=== PATIENT | male | born 1950 | race Caucasian/White ===

== ENCOUNTER 2021-11-18 10:15 | Observation (INO) | payer MEDICARE ==
[2021-11-18] VITALS (18 sets, daily range): BP systolic 125–172; BP diastolic 48–92
[~2021-11-18] VITALS: Ht 162.6 cm; Wt 52.0 kg
[~2021-11-18 10:15] MED LIST: AMPICILLIN500 MG PO; CIPROFLOXACN250 MG PO; CIPROFLOXACN500 MG PO; CLARITHROMYC500 M2 PO; DOXYCYCL HYC100 MG PO; EQ OMEPRAZOLE20 MG PO; NAPROSYN375 MG PO; NAPROXEN500 MG PO; OMEPRAZOLE +2 MG/ML PO; PAIN RELIEF; PANTOPRAZOLE SO40 MG PO; POT CHLORIDE20 % PO; PRILOSEC40 MG PO; PROMETHAZINE25 MG PO; PROTONIX PO; ZOFRAN ODT8 MG PO
[2021-11-18] MEDS ORDERED: ZOCOR10 MG PO (10:37)
[2021-11-18 10:48] LABS: HEMATOCRIT 29.7 % (39.0-50.0); HEMOGLOBIN 7.9 g/dl (14.0-18.0); IMMATURE GRANULOCYTES 4.5 % (0.0-5.0); MEAN CORPUSCULAR HGB 18.2 pG CALC (26.0-32.0); MEAN CORPUSCULAR HGB CONC 26.6 g/dL CAL (32.0-36.0); NEUT# 12.92 thou/uL (1.82-7.42); RED BLOOD COUNT 4.33 mill/uL (4.70-6.10); RED CELL DISTRI WIDTH 18.8 % (11.5-15.5)
[2021-11-18 10:49] LABS: MEAN CELL VOLUME 68.6 fL CALC (80.0-100.0)
[2021-11-18 11:12] LABS: ALKALINE PHOSPHATASE 93 u/l (38-126); ANION GAP 17 (6-22 (CALC)); BILIRUBIN, TOTAL 0.5 mg/dL (0.0-1.4); BUN 15 mg/dL (8-23); BUN/CREATININE RATIO 18 (12-20 (CALC)); CARBON DIOXIDE 22 mmol/l (22-30); CHLORIDE 98 mmol/l (95-108); CREATININE 0.8 mg/dL (0.7-1.3); GFR FOR AFR.AMER. > 60 ML/MIN (>=60 (CALC)); GFR OTHER RACES > 60 ML/MIN (>=60 (CALC)); POTASSIUM 3.7 mmol/l (3.5-5.1); SGOT/AST 26 u/l (19-48); SODIUM 133 mmol/l (137-146); TOTAL PROTEIN 7.1 g/dL (6.3-8.2)
[2021-11-19] VITALS (15 sets, daily range): BP systolic 104–170; BP diastolic 38–74
[2021-11-19 05:57] LABS: MEAN CELL VOLUME 68.5 fL CALC (80.0-100.0); MEAN CORPUSCULAR HGB 18.5 pG CALC (26.0-32.0); RED BLOOD COUNT 3.3 mill/uL (4.70-6.10); RED CELL DISTRI WIDTH 18.6 % (11.5-15.5)
[2021-11-19 06:02] LABS: HEMATOCRIT 22.6 % (39.0-50.0); HEMOGLOBIN 6.1 g/dl (14.0-18.0)
[2021-11-19 06:07] LABS: ALKALINE PHOSPHATASE 70 u/l (38-126); ANION GAP 14 (6-22 (CALC)); BILIRUBIN, TOTAL 0.3 mg/dL (0.0-1.4); BUN 21 mg/dL (8-23); BUN/CREATININE RATIO 31 (12-20 (CALC)); CARBON DIOXIDE 21 mmol/l (22-30); CHLORIDE 105 mmol/l (95-108); CREATININE 0.7 mg/dL (0.7-1.3); GFR FOR AFR.AMER. > 60 ML/MIN (>=60 (CALC)); GFR OTHER RACES > 60 ML/MIN (>=60 (CALC)); MAGNESIUM 2.2 mg/dL (1.6-2.3); POTASSIUM 3.6 mmol/l (3.5-5.1); SGOT/AST 23 u/l (19-48); SODIUM 136 mmol/l (137-146); TOTAL PROTEIN 5.7 g/dL (6.3-8.2)
[2021-11-19 06:13] LABS: ALBUMIN 3.1 g/dL (3.2-5.0)
[2021-11-19] MEDS ORDERED: TYLENOL 8 HOUR650 MG PO (09:56)
[2021-11-19] MEDS ORDERED: ERYTHROMYCI3 OU (09:57)
[2021-11-20 04:25] VITALS: BP 166/73
[2021-11-20 05:19] LABS: HEMATOCRIT 28.1 % (39.0-50.0); MEAN CELL VOLUME 72.2 fL CALC (80.0-100.0); MEAN CORPUSCULAR HGB 21.3 pG CALC (26.0-32.0); MEAN CORPUSCULAR HGB CONC 29.5 g/dL CAL (32.0-36.0); RED BLOOD COUNT 3.89 mill/uL (4.70-6.10); RED CELL DISTRI WIDTH 21.4 % (11.5-15.5)
[2021-11-20 05:23] LABS: HEMOGLOBIN 8.3 g/dl (14.0-18.0)
[2021-11-20 05:44] LABS: ANION GAP 14 (6-22 (CALC)); BUN 7 mg/dL (8-23); BUN/CREATININE RATIO 11 (12-20 (CALC)); CARBON DIOXIDE 19 mmol/l (22-30); CHLORIDE 105 mmol/l (95-108); CREATININE 0.7 mg/dL (0.7-1.3); GFR FOR AFR.AMER. > 60 ML/MIN (>=60 (CALC)); GFR OTHER RACES > 60 ML/MIN (>=60 (CALC)); MAGNESIUM 2.2 mg/dL (1.6-2.3); POTASSIUM 3.4 mmol/l (3.5-5.1); SODIUM 135 mmol/l (137-146)
[2021-11-20 06:35] VITALS: BP 118/87
[2021-11-20 15:49] LABS: URINE BILIRUBIN - DIPSTICK NEGATIVE (NEGATIVE); URINE BLOOD DIPSTICK SMALL (NEGATIVE); URINE CLARITY CLEAR; URINE COLOR YELLOW; URINE GLUCOSE - DIPSTICK NEGATIVE (NEGATIVE); URINE KETONE >=80 mg/dL (NEGATIVE); URINE LEUK ESTERASE NEGATIVE (Negative); URINE NITRITE - DIPSTICK NEGATIVE (Negative); URINE PH 6.5 (4.5-8.0); URINE PROTEIN - DIPSTICK NEGATIVE (NEG-TRACE); URINE SPECIFIC GRAVITY 1.025; URINE UROBILINOGEN - DIPSTICK 0.2 E.U./dL (0.2)
[2021-11-20 16:04] LABS: URINE WBC 0-2 WBC/hpf (0-5)
[2021-11-20 16:21] VITALS: BP 152/75
[2021-11-20 19:12] VITALS: BP 151/76
[2021-11-21 03:30] VITALS: BP 144/53
[2021-11-21 04:00] VITALS: BP 144/53
[2021-11-21 05:57] LABS: HEMATOCRIT 29.3 % (39.0-50.0); HEMOGLOBIN 8.6 g/dl (14.0-18.0); MEAN CELL VOLUME 73.1 fL CALC (80.0-100.0); MEAN CORPUSCULAR HGB 21.4 pG CALC (26.0-32.0); MEAN CORPUSCULAR HGB CONC 29.4 g/dL CAL (32.0-36.0); RED BLOOD COUNT 4.01 mill/uL (4.70-6.10); RED CELL DISTRI WIDTH 22.1 % (11.5-15.5)
[2021-11-21 06:11] LABS: ANION GAP 18 (6-22 (CALC)); BUN 5 mg/dL (8-23); BUN/CREATININE RATIO 8 (12-20 (CALC)); CARBON DIOXIDE 16 mmol/l (22-30); CHLORIDE 104 mmol/l (95-108); CREATININE 0.6 mg/dL (0.7-1.3); GFR FOR AFR.AMER. > 60 ML/MIN (>=60 (CALC)); GFR OTHER RACES > 60 ML/MIN (>=60 (CALC)); MAGNESIUM 2.2 mg/dL (1.6-2.3); POTASSIUM 3.9 mmol/l (3.5-5.1); SODIUM 134 mmol/l (137-146)
[2021-11-21 07:31] VITALS: BP 181/81
[2021-11-21 11:20] VITALS: BP 138/72
[2021-11-21] MEDS ORDERED: EQ OMEPRAZOLE20 MG PO (12:47)
[2021-11-21] MEDS ORDERED: AMOX/K CLAV875 M1 PO (12:47)
== END 2021-11-21 14:37 | disposition home health service (06) ==
LOC: ED 10:15 → ED-I 13:00 → ED 13:14 → MS2 13:15
PROVIDERS: Family Medicine; ADMIT Internal Medicine; ATTEND Internal Medicine
PROC: 30233N1 Transfusion of Nonautologous Red Blood Cells into Peripheral Vein, Percutaneous Approach (ICD-10-PCS; principal; 2021-11-19)
PROC: 30233N1 Transfusion of Nonautologous Red Blood Cells into Peripheral Vein, Percutaneous Approach (ICD-10-PCS; 2021-11-19)
DX: J18.9 Pneumonia, unspecified organism (principal); D62 Acute posthemorrhagic anemia; R13.10 Dysphagia, unspecified; K22.5 Diverticulum of esophagus, acquired; I69.351 Hemiplegia and hemiparesis following cerebral infarction affecting right dominant side; R19.5 Other fecal abnormalities; G93.40 Encephalopathy, unspecified; K21.9 Gastro-esophageal reflux disease without esophagitis; F17.210 Nicotine dependence, cigarettes, uncomplicated; Z99.3 Dependence on wheelchair; Z20.822 Contact with and (suspected) exposure to COVID-19
CPT/HCPCS: G0378; J1610; J1756; P9016; S0164

== ENCOUNTER 2022-01-07 19:56 | Inpatient (IN) | payer MEDICARE ==
[~2022-01-07] VITALS: Ht 162.6 cm; Wt 51.0 kg
[2022-01-07] VITALS (11 sets, daily range): BP systolic 125–167; BP diastolic 69–91
[~2022-01-07 19:56] MED LIST changes: +AMOX/K CLAV875 M1 PO; +ERYTHROMYCI3 OU; +TYLENOL 8 HOUR650 MG PO; +ZOCOR10 MG PO
[2022-01-07] MEDS ORDERED: FOLIC ACID1 MG PO (20:48)
[2022-01-07] MEDS ORDERED: FERROUS SULF325 M3 PO (20:48)
[2022-01-07] MEDS ORDERED: B121000 MC1 (20:49)
[2022-01-07] MEDS ORDERED: VALGANCICLOVIR450 MG VT (20:50)
[2022-01-07 21:19] LABS: IMMATURE GRANULOCYTES 0.5 % (0.0-5.0); MEAN CORPUSCULAR HGB 24.8 pG CALC (26.0-32.0); MEAN CORPUSCULAR HGB CONC 31.9 g/dL CAL (32.0-36.0); NEUT# 7.35 thou/uL (1.82-7.42); RED BLOOD COUNT 5.49 mill/uL (4.70-6.10)
[2022-01-07 21:22] LABS: HEMATOCRIT 42.6 % (39.0-50.0); HEMOGLOBIN 13.6 g/dl (14.0-18.0); MEAN CELL VOLUME 77.6 fL CALC (80.0-100.0)
[2022-01-07 21:26] LABS: ALKALINE PHOSPHATASE 89 u/l (38-126); BUN 17 mg/dL (8-23); BUN/CREATININE RATIO 18 (12-20 (CALC)); CHLORIDE 98 mmol/l (95-108); CREATININE 0.9 mg/dL (0.7-1.3); GFR FOR AFR.AMER. > 60 ML/MIN (>=60 (CALC)); GFR OTHER RACES > 60 ML/MIN (>=60 (CALC)); POTASSIUM 3.7 mmol/l (3.5-5.1); SODIUM 137 mmol/l (137-146)
[2022-01-07 21:27] LABS: ALBUMIN 4.4 g/dL (3.2-5.0); ANION GAP 17 (6-22 (CALC)); CARBON DIOXIDE 26 mmol/l (22-30); SGOT/AST 59 u/l (19-48); TOTAL PROTEIN 7.7 g/dL (6.3-8.2)
[2022-01-08] VITALS (7 sets, daily range): BP systolic 128–157; BP diastolic 54–78
[2022-01-09 03:20] VITALS: BP 152/64
[2022-01-09 05:13] VITALS: BP 141/56
[2022-01-09 06:03] LABS: ANION GAP 12 (6-22 (CALC)); BUN 13 mg/dL (8-23); BUN/CREATININE RATIO 17 (12-20 (CALC)); CARBON DIOXIDE 27 mmol/l (22-30); CHLORIDE 102 mmol/l (95-108); CREATININE 0.8 mg/dL (0.7-1.3); GFR FOR AFR.AMER. > 60 ML/MIN (>=60 (CALC)); GFR OTHER RACES > 60 ML/MIN (>=60 (CALC)); MAGNESIUM 2.2 mg/dL (1.6-2.3); POTASSIUM 3.5 mmol/l (3.5-5.1); SODIUM 138 mmol/l (137-146)
[2022-01-09 06:07] LABS: HEMATOCRIT 39.7 % (39.0-50.0); HEMOGLOBIN 12.5 g/dl (14.0-18.0); IMMATURE GRANULOCYTES 0.4 % (0.0-5.0); MEAN CELL VOLUME 78.8 fL CALC (80.0-100.0); MEAN CORPUSCULAR HGB 24.8 pG CALC (26.0-32.0); MEAN CORPUSCULAR HGB CONC 31.5 g/dL CAL (32.0-36.0); NEUT# 7.88 thou/uL (1.82-7.42); RED BLOOD COUNT 5.04 mill/uL (4.70-6.10); RED CELL DISTRI WIDTH 18.4 % (11.5-15.5)
[2022-01-09 06:14] VITALS: BP 141/56
[2022-01-09 13:45] VITALS: BP 130/64
[2022-01-09 15:26] VITALS: BP 123/65; BP 130/64
[2022-01-09 18:00] VITALS: BP 150/62
[2022-01-10 03:42] VITALS: BP 87/52
[2022-01-10 05:09] VITALS: BP 120/57
[2022-01-10 05:10] LABS: HEMATOCRIT 38.6 % (39.0-50.0); IMMATURE GRANULOCYTES 0.5 % (0.0-5.0); MEAN CELL VOLUME 78.8 fL CALC (80.0-100.0); MEAN CORPUSCULAR HGB 24.5 pG CALC (26.0-32.0); MEAN CORPUSCULAR HGB CONC 31.1 g/dL CAL (32.0-36.0); NEUT# 6.13 thou/uL (1.82-7.42); RED BLOOD COUNT 4.9 mill/uL (4.70-6.10); RED CELL DISTRI WIDTH 18.5 % (11.5-15.5)
[2022-01-10 05:31] VITALS: BP 114/68
[2022-01-10 05:33] LABS: ANION GAP 9 (6-22 (CALC)); BUN 8 mg/dL (8-23); BUN/CREATININE RATIO 12 (12-20 (CALC)); CARBON DIOXIDE 30 mmol/l (22-30); CHLORIDE 101 mmol/l (95-108); CREATININE 0.7 mg/dL (0.7-1.3); GFR FOR AFR.AMER. > 60 ML/MIN (>=60 (CALC)); GFR OTHER RACES > 60 ML/MIN (>=60 (CALC)); MAGNESIUM 2.1 mg/dL (1.6-2.3); POTASSIUM 3.4 mmol/l (3.5-5.1); SODIUM 137 mmol/l (137-146)
[2022-01-10 10:35] VITALS: BP 142/58
[2022-01-10 15:03] VITALS: BP 140/51
[2022-01-10 18:37] VITALS: BP 128/69
[2022-01-11] VITALS (13 sets, daily range): BP systolic 125–187; BP diastolic 40–98
[2022-01-12 04:00] VITALS: BP 156/44
[2022-01-12 05:13] VITALS: BP 136/53
[2022-01-12 05:56] LABS: ALKALINE PHOSPHATASE 64 u/l (38-126); ANION GAP 11 (6-22 (CALC)); BILIRUBIN, TOTAL 0.7 mg/dL (0.0-1.4); BUN 4 mg/dL (8-23); BUN/CREATININE RATIO 6 (12-20 (CALC)); CARBON DIOXIDE 27 mmol/l (22-30); CHLORIDE 102 mmol/l (95-108); CREATININE 0.7 mg/dL (0.7-1.3); GFR FOR AFR.AMER. > 60 ML/MIN (>=60 (CALC)); GFR OTHER RACES > 60 ML/MIN (>=60 (CALC)); POTASSIUM 3.4 mmol/l (3.5-5.1); SGOT/AST 33 u/l (19-48); SODIUM 136 mmol/l (137-146); TOTAL PROTEIN 6.5 g/dL (6.3-8.2)
[2022-01-12 06:01] LABS: HEMOGLOBIN 11.6 g/dl (14.0-18.0); IMMATURE GRANULOCYTES 0.7 % (0.0-5.0); MEAN CELL VOLUME 78.9 fL CALC (80.0-100.0); MEAN CORPUSCULAR HGB 24.7 pG CALC (26.0-32.0); MEAN CORPUSCULAR HGB CONC 31.4 g/dL CAL (32.0-36.0); NEUT# 3.59 thou/uL (1.82-7.42); RED BLOOD COUNT 4.69 mill/uL (4.70-6.10); RED CELL DISTRI WIDTH 18.2 % (11.5-15.5)
[2022-01-12 06:02] LABS: ALBUMIN 3.5 g/dL (3.2-5.0)
[2022-01-12 15:48] VITALS: BP 152/72
[2022-01-12 18:14] VITALS: BP 130/52
[2022-01-12 23:12] VITALS: BP 110/86
[2022-01-13 03:38] VITALS: BP 133/53
[2022-01-13 04:55] VITALS: BP 130/72
[2022-01-13 05:30] LABS: HEMOGLOBIN 11.9 g/dl (14.0-18.0); IMMATURE GRANULOCYTES 0.7 % (0.0-5.0); MEAN CELL VOLUME 78.6 fL CALC (80.0-100.0); MEAN CORPUSCULAR HGB 25.3 pG CALC (26.0-32.0); MEAN CORPUSCULAR HGB CONC 32.2 g/dL CAL (32.0-36.0); NEUT# 3.59 thou/uL (1.82-7.42); RED BLOOD COUNT 4.71 mill/uL (4.70-6.10); RED CELL DISTRI WIDTH 18.2 % (11.5-15.5)
[2022-01-13 05:35] LABS: ALBUMIN 3.5 g/dL (3.2-5.0); ALKALINE PHOSPHATASE 65 u/l (38-126); ANION GAP 9 (6-22 (CALC)); BUN 2 mg/dL (8-23); BUN/CREATININE RATIO 3 (12-20 (CALC)); CARBON DIOXIDE 27 mmol/l (22-30); CHLORIDE 103 mmol/l (95-108); CREATININE 0.6 mg/dL (0.7-1.3); GFR FOR AFR.AMER. > 60 ML/MIN (>=60 (CALC)); GFR OTHER RACES > 60 ML/MIN (>=60 (CALC)); POTASSIUM 3.5 mmol/l (3.5-5.1); SGOT/AST 32 u/l (19-48); SODIUM 136 mmol/l (137-146); TOTAL PROTEIN 6.3 g/dL (6.3-8.2)
[2022-01-13 05:36] LABS: BILIRUBIN, TOTAL 0.4 mg/dL (0.0-1.4)
[2022-01-13 07:00] VITALS: BP 141/60
[2022-01-13 16:30] VITALS: BP 168/47
[2022-01-13 17:43] VITALS: BP 120/98
[2022-01-13 22:33] VITALS: BP 124/78
[2022-01-14 03:46] VITALS: BP 109/60
[2022-01-14 05:43] LABS: HEMATOCRIT 37.1 % (39.0-50.0); HEMOGLOBIN 11.7 g/dl (14.0-18.0); IMMATURE GRANULOCYTES 0.4 % (0.0-5.0); MEAN CELL VOLUME 79.3 fL CALC (80.0-100.0); MEAN CORPUSCULAR HGB CONC 31.5 g/dL CAL (32.0-36.0); NEUT# 2.87 thou/uL (1.82-7.42); RED BLOOD COUNT 4.68 mill/uL (4.70-6.10); RED CELL DISTRI WIDTH 18.3 % (11.5-15.5)
[2022-01-14 05:45] VITALS: BP 120/81
[2022-01-14 06:04] LABS: ALBUMIN 3.2 g/dL (3.2-5.0); ALKALINE PHOSPHATASE 85 u/l (38-126); ANION GAP 11 (6-22 (CALC)); BILIRUBIN, TOTAL 0.3 mg/dL (0.0-1.4); BUN 4 mg/dL (8-23); BUN/CREATININE RATIO 7 (12-20 (CALC)); CARBON DIOXIDE 28 mmol/l (22-30); CHLORIDE 103 mmol/l (95-108); CREATININE 0.6 mg/dL (0.7-1.3); GFR FOR AFR.AMER. > 60 ML/MIN (>=60 (CALC)); GFR OTHER RACES > 60 ML/MIN (>=60 (CALC)); POTASSIUM 3.6 mmol/l (3.5-5.1); SGOT/AST 27 u/l (19-48); SODIUM 138 mmol/l (137-146); TOTAL PROTEIN 5.8 g/dL (6.3-8.2)
[2022-01-14] MEDS ORDERED: AUGMENTIN400 MG/5 M VT (12:58)
[2022-01-14 15:05] VITALS: BP 133/62
== END 2022-01-14 17:13 | disposition home health service (06) | DRG 177 ==
LOC: ED 19:56 → ED-I 22:45 → ED 23:01 → MS2 23:02
PROVIDERS: Emergency Medicine; Nurse Practitioner Family; ADMIT Internal Medicine; ATTEND Internal Medicine
PROC: 0D728ZZ Dilation of Middle Esophagus, Via Natural or Artificial Opening Endoscopic (ICD-10-PCS; principal; 2022-01-11)
PROC: 0DH63UZ Insertion of Feeding Device into Stomach, Percutaneous Approach (ICD-10-PCS; 2022-01-11)
DX: J69.0 Pneumonitis due to inhalation of food and vomit (principal); E43 Unspecified severe protein-calorie malnutrition; B25.8 Other cytomegaloviral diseases; K20.80 Other esophagitis without bleeding; K22.2 Esophageal obstruction; I69.328 Other speech and language deficits following cerebral infarction; K21.9 Gastro-esophageal reflux disease without esophagitis; D50.9 Iron deficiency anemia, unspecified; Z99.3 Dependence on wheelchair; Z20.822 Contact with and (suspected) exposure to COVID-19
CPT/HCPCS: G0378; S0164

== ENCOUNTER 2022-02-28 11:26 | Day surgery (SDC) | payer MEDICARE ==
[~2022-02-28] VITALS: Ht 165.1 cm; Wt 49.9 kg
[~2022-02-28 11:26] MED LIST changes: +AUGMENTIN400 MG/5 M VT; +B121000 MC1; +FERROUS SULF325 M3 PO; +FOLIC ACID1 MG PO; +VALGANCICLOVIR450 MG VT
[2022-02-28] MEDS ORDERED: B121000 MC1 FT (11:40)
[2022-02-28 12:52] VITALS: BP 144/74
== END 2022-02-28 13:13 | disposition home or self-care (01) ==
LOC: ENDO 11:26 → ORM 16:00
PROVIDERS: ATTEND Internal Medicine Gastroenterology
PROC: 0DB38ZX Excision of Lower Esophagus, Via Natural or Artificial Opening Endoscopic, Diagnostic (ICD-10-PCS; principal; 2022-02-28)
PROC: 0DB28ZX Excision of Middle Esophagus, Via Natural or Artificial Opening Endoscopic, Diagnostic (ICD-10-PCS; 2022-02-28)
DX: K20.80 Other esophagitis without bleeding (principal); K22.2 Esophageal obstruction; K44.9 Diaphragmatic hernia without obstruction or gangrene

== ENCOUNTER 2022-07-18 17:04 | Inpatient (IN) | payer MEDICARE ==
[~2022-07-18] VITALS: Ht 165.1 cm; Wt 50.0 kg
[~2022-07-18 17:04] MED LIST changes: +B121000 MC1 FT
[2022-07-18 17:47] LABS: BASO% 0.2 % (0-3); EOS% 0.3 % (0-8); IMMATURE GRANULOCYTES 1.1 % (0.0-5.0); LYMPH% 9.3 % (15-41); MEAN CORPUSCULAR HGB CONC 33.8 g/dL CAL (32.0-36.0); MONO% 5.5 % (2-13); NEUT# 14.84 thou/uL (1.82-7.42); NEUT% 83.6 % (42-76); RED BLOOD COUNT 4.59 mill/uL (4.70-6.10); RED CELL DISTRI WIDTH 13.3 % (11.5-15.5)
[2022-07-18] MEDS ORDERED: OMEPRAZOLE20 MG PO (17:47)
[2022-07-18 17:49] LABS: HEMATOCRIT 46.2 % (39.0-50.0); HEMOGLOBIN 15.6 g/dl (14.0-18.0); MEAN CELL VOLUME 100.7 fL CALC (80.0-100.0)
[2022-07-18] MEDS ORDERED: MULTI VIT PO (17:51)
[2022-07-18] MEDS ORDERED: VALCYTE50 MG/ML PO (17:51)
[2022-07-18 18:04] LABS: ALBUMIN 4.2 g/dL (3.2-5.0); ALKALINE PHOSPHATASE 118 u/l (38-126); ANION GAP 14 (6-22 (CALC)); BILIRUBIN, TOTAL 0.3 mg/dL (0.2-1.3); BUN 30 mg/dL (8-23); BUN/CREATININE RATIO 50 (12-20 (CALC)); CARBON DIOXIDE 24 mmol/l (22-30); CHLORIDE 110 mmol/l (95-108); CREATININE 0.6 mg/dL (0.7-1.3); GFR FOR AFR.AMER. > 60 ML/MIN (>=60 (CALC)); GFR OTHER RACES > 60 ML/MIN (>=60 (CALC)); POTASSIUM 4.2 mmol/l (3.5-5.1); SGOT/AST 43 u/l (19-48); SODIUM 143 mmol/l (137-146); TOTAL PROTEIN 8.1 g/dL (6.3-8.2)
[2022-07-18 22:07] VITALS: BP 135/61
[2022-07-18] MEDS ORDERED: FERROUS SU220 MG/51 PEG (23:59)
[2022-07-19 04:08] VITALS: BP 113/66
[2022-07-19 07:28] VITALS: BP 152/63
[2022-07-19 09:31] LABS: BASO% 0.2 % (0-3); EOS% 0.5 % (0-8); HEMATOCRIT 43.1 % (39.0-50.0); HEMOGLOBIN 14.2 g/dl (14.0-18.0); IMMATURE GRANULOCYTES 1.2 % (0.0-5.0); MEAN CELL VOLUME 103.1 fL CALC (80.0-100.0); MEAN CORPUSCULAR HGB CONC 32.9 g/dL CAL (32.0-36.0); NEUT# 10.08 thou/uL (1.82-7.42); NEUT% 83.1 % (42-76); RED BLOOD COUNT 4.18 mill/uL (4.70-6.10); RED CELL DISTRI WIDTH 13.6 % (11.5-15.5)
[2022-07-19 09:54] LABS: ALBUMIN 3.6 g/dL (3.2-5.0); ALKALINE PHOSPHATASE 91 u/l (38-126); ANION GAP 11 (6-22 (CALC)); BUN 17 mg/dL (8-23); BUN/CREATININE RATIO 30 (12-20 (CALC)); CARBON DIOXIDE 26 mmol/l (22-30); CHLORIDE 113 mmol/l (95-108); CREATININE 0.6 mg/dL (0.7-1.3); GFR FOR AFR.AMER. > 60 ML/MIN (>=60 (CALC)); GFR OTHER RACES > 60 ML/MIN (>=60 (CALC)); POTASSIUM 4.2 mmol/l (3.5-5.1); SGOT/AST 42 u/l (19-48); SODIUM 146 mmol/l (137-146); TOTAL PROTEIN 6.5 g/dL (6.3-8.2)
[2022-07-19 09:56] LABS: BILIRUBIN, TOTAL 0.5 mg/dL (0.2-1.3)
[2022-07-19 16:04] VITALS: BP 141/69
[2022-07-19 19:04] VITALS: BP 121/60
[2022-07-20 04:09] VITALS: BP 140/67
[2022-07-20 05:27] LABS: BASO% 0.3 % (0-3); EOS% 0.9 % (0-8); HEMATOCRIT 41.9 % (39.0-50.0); IMMATURE GRANULOCYTES 1.4 % (0.0-5.0); LYMPH% 14.7 % (15-41); MEAN CELL VOLUME 102.4 fL CALC (80.0-100.0); MEAN CORPUSCULAR HGB 34.2 pG CALC (26.0-32.0); MEAN CORPUSCULAR HGB CONC 33.4 g/dL CAL (32.0-36.0); MONO% 5.6 % (2-13); NEUT# 7.33 thou/uL (1.82-7.42); NEUT% 77.1 % (42-76); RED BLOOD COUNT 4.09 mill/uL (4.70-6.10)
[2022-07-20 05:44] LABS: ALBUMIN 3.5 g/dL (3.2-5.0); ALKALINE PHOSPHATASE 84 u/l (38-126); ANION GAP 11 (6-22 (CALC)); BILIRUBIN, TOTAL 0.4 mg/dL (0.2-1.3); BUN 12 mg/dL (8-23); BUN/CREATININE RATIO 22 (12-20 (CALC)); CARBON DIOXIDE 22 mmol/l (22-30); CHLORIDE 111 mmol/l (95-108); CREATININE 0.5 mg/dL (0.7-1.3); GFR FOR AFR.AMER. > 60 ML/MIN (>=60 (CALC)); GFR OTHER RACES > 60 ML/MIN (>=60 (CALC)); MAGNESIUM 2.2 mg/dL (1.6-2.3); POTASSIUM 3.6 mmol/l (3.5-5.1); SGOT/AST 42 u/l (19-48); SODIUM 140 mmol/l (137-146); TOTAL PROTEIN 6.8 g/dL (6.3-8.2)
[2022-07-20 06:50] VITALS: BP 145/69
[2022-07-20] MEDS ORDERED: AUGMENTIN400 MG/5 M VT (10:58)
== END 2022-07-20 12:42 | disposition home or self-care (01) | DRG 178 ==
LOC: ED 17:04 → MS2 20:49
PROVIDERS: Family Medicine; Nurse Practitioner Family; ADMIT Internal Medicine; ATTEND Internal Medicine
DX: J69.0 Pneumonitis due to inhalation of food and vomit (principal); B25.8 Other cytomegaloviral diseases; I69.991 Dysphagia following unspecified cerebrovascular disease; J43.9 Emphysema, unspecified; K20.80 Other esophagitis without bleeding; K22.2 Esophageal obstruction; F17.200 Nicotine dependence, unspecified, uncomplicated; Z93.1 Gastrostomy status; Z99.3 Dependence on wheelchair; Z20.822 Contact with and (suspected) exposure to COVID-19
CPT/HCPCS: G0378; J1650; Q9967

== ENCOUNTER 2024-05-05 11:06 | Inpatient (IN) | payer MEDICARE ==
[~2024-05-05] VITALS: Ht 160 cm; Wt 59.0 kg
[2024-05-05] VITALS (21 sets, daily range): BP systolic 104–150; BP diastolic 60–113
[~2024-05-05 11:06] MED LIST changes: +FERROUS SU220 MG/51 PEG; +MULTI VIT PO; +OMEPRAZOLE20 MG PO; +TYLENOL500 MG PO; +VALCYTE50 MG/ML PO
--- NOTE | 2024-05-05 11:46 | NUR ---
PT TRANSPORTED TO ROOM 12 VIA W/C.
[2024-05-05 12:24] LABS: HEMATOCRIT 47.8 % (39.0-50.0); IMMATURE GRANULOCYTES 0.6 % (0.0-5.0); MEAN CELL VOLUME 96.4 fL CALC (80.0-100.0); MEAN CORPUSCULAR HGB 33.3 pG CALC (26.0-32.0); MEAN CORPUSCULAR HGB CONC 34.5 g/dL CAL (32.0-36.0); PLATELET COUNT 231 thou/uL (130-400); RED BLOOD COUNT 4.96 mill/uL (4.70-6.10); RED CELL DISTRI WIDTH 13.3 % (11.5-15.5)
[2024-05-05 12:30] LABS: HEMOGLOBIN 16.5 g/dl (14.0-18.0)
[2024-05-05 12:31] LABS: MANUAL DIFFERENTIAL YES
[2024-05-05 12:35] LABS: CREATININE 0.6 mg/dL (0.7-1.3); POTASSIUM 3.9 mmol/l (3.5-5.1)
[2024-05-05] MEDS ORDERED: CEFEPIME HYDROCHLORIDE 2 GM in SODIUM CHLORIDE 0.9% 100 ML IV ONE (12:35)
[2024-05-05 12:36] LABS: ALBUMIN 4.4 g/dL (3.2-5.0); BILIRUBIN, TOTAL 0.8 mg/dL (0.2-1.3)
[2024-05-05] MEDS ORDERED: SODIUM CHLORIDE 0.9% 1,000 ML IV ONE (12:45)
[2024-05-05] MEDS ORDERED: VANCOMYCIN HCL 1 GM in SODIUM CHLORIDE 0.9% 500 ML IV ONE (12:45)
[2024-05-05 12:58] LABS: BAND 6 % (0-8); PLATELET ESTIMATE NORMAL
--- NOTE | 2024-05-05 13:00 | NUR ---
NEW AC IV STARTED FOR CT.
--- NOTE | 2024-05-05 14:00 | NUR ---
PATIENT RESTING COMFORTABLY WITH NO ACUTE DISTRESS NOTED.
[2024-05-05 14:06] LABS: URINE BILIRUBIN - DIPSTICK Negative (NEGATIVE); URINE BLOOD DIPSTICK Negative (NEGATIVE); URINE GLUCOSE - DIPSTICK 100 mg/dL (NEGATIVE); URINE KETONE Trace mg/dL (NEGATIVE); URINE LEUK ESTERASE Trace (NEGATIVE); URINE NITRITE - DIPSTICK Negative (Negative); URINE PH 5.5 (4.5-8.0); URINE PROTEIN - DIPSTICK Trace mg/dL (NEG-TRACE); URINE SPECIFIC GRAVITY 1.015; URINE UROBILINOGEN - DIPSTICK 0.2 E.U./dL (0.2)
[2024-05-05 14:13] LABS: URINE COLOR Yellow
[2024-05-05] MEDS ORDERED: PANTOPRAZOLE SODIUM Sesquihydr 40 MG/TAB PO SCH (16:05)
[2024-05-05] MEDS ORDERED: ONDANSETRON 4 MG/TAB ODT SL PRN (16:05)
[2024-05-05] MEDS ORDERED: ACETAMINOPHEN 325 MG/TAB PO PRN (16:05)
[2024-05-05] MEDS ORDERED: MELATONIN 3 MG/TAB PO PRN (16:05)
[2024-05-05] MEDS ORDERED: ONDANSETRON HCl 4 MG/2 ML SDV IV PRN (16:05)
[2024-05-05] MEDS ORDERED: SODIUM CHLORIDE 0.9% 1,000 ML IV PRN (16:05)
--- NOTE | 2024-05-05 16:35 | NUR ---
PATIENT TAKEN TO [facility] ROOM 273 WITH TELE NUMBER [id number]
--- NOTE | 2024-05-05 16:38 | NUR ---
REPORT GIVEN TO
--- NOTE | 2024-05-05 16:45 | NUR ---
Pt arrived to unit via streacher transport, unable to stand for standing scale, pt required 2 staff members with max assist to get from streacher to bed. Pt is alert, oriented x3, respirations are even and unlabored, movements are disoriganized, unsteady. pt arrived with dark brown crustrations all over lips, when asked pt states he "threw up blood".
[2024-05-05] MEDS ORDERED: PIPERACILLIN Sodium-Tazobactam 3.375 GM in SODIUM CHLORIDE 0.9% 100 ML IV SCH (18:00)
--- NOTE | 2024-05-05 18:44 | NUR ---
PATIENT WAS UP OUT OF BED WHEN TELE CALLED ABOUT HR .
--- NOTE | 2024-05-05 19:50 | NUR ---
PT RESTING NO DISTRESS NOTED ON ASSESSMENT. PT ALERT AND ORIENTATED SPEECH GARBLED. NO PAIN REPORTED AT THIS TIME. VS WNL ON RA LUNDS DIMINISHED. PEG TUBE NOTED CLAMPED. IV FLUSHED AND IV FLUIDS STARTED WORKING PROPERLY. PT HAS STEPAN HOSES ON. SKIN INTACT WITH SLIGHT REDNESS BLANCHABLE ON BUTTOM. PT IS ABLE TO SELF REPOSITION AT THIS TIME. BSC SETUP. CALL LIGHT WITHIN REACH. BED ALARM ON. PLAN OF CARE ONGOING.
[2024-05-05] MEDS ORDERED: ENOXAPARIN SODIUM 40 MG/0.4 ML SYR SC SCH (21:00)
[2024-05-06] VITALS (10 sets, daily range): BP systolic 113–146; BP diastolic 35–94
[2024-05-06] MEDS ORDERED: VANCOMYCIN HCL 1 GM in SODIUM CHLORIDE 0.9% 250 ML IV SCH
--- NOTE | 2024-05-06 00:15 | NUR ---
PT SLEEPING EASILY AROUSABLE. ABX GIVEN THRU IV WORKING PROPERLY. BED ALARM ON. CALL LIGHT WITHIN REACH. PLAN OF CARE ONGOING.
--- NOTE | 2024-05-06 04:30 | NUR ---
PT SLEEPING BREATHING EVENLY NO DISTRESS NOTED ON EXAM. CALL LIGHT WITHIN REACH. BED ALARM ON. PLAN OF CARE ONGOING.
[2024-05-06 04:37] LABS: BASO% 0.1 % (0-3); IMMATURE GRANULOCYTES 0.9 % (0.0-5.0); LYMPH% 7.7 % (15-41); MEAN CORPUSCULAR HGB 33.4 pG CALC (26.0-32.0); MEAN CORPUSCULAR HGB CONC 33.4 g/dL CAL (32.0-36.0); MONO% 7.5 % (2-13); NEUT# 19.04 thou/uL (1.82-7.42); NEUT% 83.8 % (42-76); RED BLOOD COUNT 3.74 mill/uL (4.70-6.10); RED CELL DISTRI WIDTH 13.8 % (11.5-15.5)
[2024-05-06 04:38] LABS: HEMATOCRIT 37.4 % (39.0-50.0); HEMOGLOBIN 12.5 g/dl (14.0-18.0)
[2024-05-06 04:44] LABS: BILIRUBIN, TOTAL 0.7 mg/dL (0.2-1.3); CREATININE 0.6 mg/dL (0.7-1.3); MAGNESIUM 2.2 mg/dL (1.6-2.3); POTASSIUM 3.4 mmol/l (3.5-5.1)
[2024-05-06 04:48] LABS: ALBUMIN 3.1 g/dL (3.2-5.0); TOTAL PROTEIN 5.4 g/dL (6.3-8.2)
--- NOTE | 2024-05-06 07:07 | NUR ---
PATIENT IN BED PLEASENT AND ALERT. HAS NO C/O PAIN OR DISCOMFORT AND SOB. RECIEVED REPORT FACE TO FACE FROM NIGHT NURSE
[2024-05-06] MEDS ORDERED: Pantoprazole Sodium 40 MG VIAL (Protonix) IV SCH (10:30)
--- NOTE | 2024-05-06 11:38 | NUR ---
S: MARIE LÓPEZ is a 74 M who presents with pneumonia. He has a history of chicken pox, stroke, CVA, dysphagia and PEG tube. All medications in patient's chart were reviewed. O: VS: BP 135/72 mmHg, P 118 bpm, RR 18 bpm,T 98.6 F W 59.2 kg, HT 63 inches, Scr= 0.6 mg/dl ,CrCl= 52.9 ml/min A: Blood culture is pending. P: Patient is on Zosyn 4.5 g Q6hr IV. Vancomycin ordered for pharmacy to dose. Start vancomycin 1250 mg IV Q24H. Vancomycin trough is drawn before the dose on 05/08/2024 @2130. Vancomycin goal trough is between 15-20 mcg/ml. Pharmacy will follow and or advise on antibiotics use as needed.
[2024-05-06] MEDS ORDERED: PIPERACILLIN Sodium-Tazobactam 4.5 GM in SODIUM CHLORIDE 0.9% 100 ML IV SCH (12:00)
--- NOTE | 2024-05-06 12:11 | NUR ---
PATIENT IS RESTING IN BED ALERT AND PLEASENT . TOLERATED TUBE FEED WELL. AND TOLERATING IV TX WELL ALSO. TUBE WORKING WELL / IV INTACT
[2024-05-06] MEDS ORDERED: METOPROLOL TARTRATE 5 MG/5 ML VIAL IV PRN (13:00)
--- NOTE | 2024-05-06 13:29 | NUR ---
PATIENT HR WAS 134 AND HOLDING ADVISED THE COSMETIC SALES ADVISOR DELIA AND NEW ORDERS GIVEN.
[2024-05-06] MEDS ORDERED: METOPROLOL TARTRATE 5 MG/5 ML VIAL IV SCH (14:30)
--- NOTE | 2024-05-06 14:37 | NUR ---
patient hr was still elevated 120-125 / noted PRODUCTION STATISTICAL CLERK DELIA AND WAS GIVEN ORDERS TO GIVE ONE MOR DOSE OF LOPRESSOR 2.5 IV PUSH. HR AT 103-107 NOW AND TRENDING DOWN
--- NOTE | 2024-05-06 16:49 | NUR ---
PATIENT LAYING IN BED. PATIENT DENIES ANY NEEDS AT THIS TIME.
[2024-05-06] MEDS ORDERED: LEVALBUTEROL HCL 1.25 MG/3 ML VIAL NEB SCH (19:00)
--- NOTE | 2024-05-06 20:45 | NUR ---
PT RESTING IN BED UPSET DUE TO WANTING TO GO HOME. NURSE EXPLAIN PLAN OF CARE TO PT AND EXPLAIN THAT HE NEED MEDICAL TX FOR HIS SAFETY. PT HAD PULLED OUT BOTH IV. NURSE PLACED A NEW IV ON HIS RW 20G AND IV ABX STARTED. PT WAS REPOSITIONED AND LINENS CHANGED. CALL LIGHT WITHIN REACH. BED ALARM ON. PLAN OF CARE ONGOING.
[2024-05-06] MEDS ORDERED: METOPROLOL TARTRATE 50 MG/TAB VT SCH (21:00)
[2024-05-06] MEDS ORDERED: VANCOMYCIN HCL 1,250 MG in SODIUM CHLORIDE 0.9% 225 ML IV SCH (22:00)
--- NOTE | 2024-05-06 23:50 | NUR ---
PT AWAKE NO DISTRESS NOTED ON EXAM. IV ABX STILL ONGOING. CALL LIGHT WITHIN REACH. PLAN OF CARE ONGOING. BED ALARM ON.
[2024-05-07] VITALS (8 sets, daily range): BP systolic 123–171; BP diastolic 49–78
--- NOTE | 2024-05-07 04:47 | NUR ---
PT EASILY AROUSABLE NO DISTRESS NOTED ON EXAM. CALL LIGHT WITHIN REACH. PLAN OF CARE ONGOING. BED ALARM ON.
[2024-05-07 05:29] LABS: BASO% 0.2 % (0-3); EOS% 0.2 % (0-8); HEMATOCRIT 31.4 % (39.0-50.0); HEMOGLOBIN 10.7 g/dl (14.0-18.0); IMMATURE GRANULOCYTES 3.1 % (0.0-5.0); LYMPH% 12.2 % (15-41); MEAN CELL VOLUME 99.4 fL CALC (80.0-100.0); MEAN CORPUSCULAR HGB 33.9 pG CALC (26.0-32.0); MEAN CORPUSCULAR HGB CONC 34.1 g/dL CAL (32.0-36.0); MONO% 7.9 % (2-13); NEUT# 12.83 thou/uL (1.82-7.42); NEUT% 76.4 % (42-76); RED BLOOD COUNT 3.16 mill/uL (4.70-6.10); RED CELL DISTRI WIDTH 14.1 % (11.5-15.5)
[2024-05-07 05:38] LABS: ALBUMIN 2.8 g/dL (3.2-5.0); BILIRUBIN, TOTAL 0.8 mg/dL (0.2-1.3); CREATININE 0.6 mg/dL (0.7-1.3); MAGNESIUM 2.2 mg/dL (1.6-2.3); POTASSIUM 2.8 mmol/l (3.5-5.1); TOTAL PROTEIN 5.2 g/dL (6.3-8.2)
[2024-05-07] MEDS ORDERED: POTASSIUM CHLORIDE 10MEQ 50 ML IV SCH ×2 (06:30→15:30)
--- NOTE | 2024-05-07 07:05 | NUR ---
REPORT RECEIVED FROM NATACHARN
[2024-05-07] MEDS ORDERED: SODIUM CHLORIDE 0.9% 500 ML IV SCH (07:50)
--- NOTE | 2024-05-07 09:10 | NUR ---
PT RESTING IN SEMI FOWLERS POSITION,A&O X3. GARBLED SPEECH R/T TO CVA HX.PT DENIES ANY CURRENT PAIN OR DISCOMFORTS, PAIN SCALE AND REPORTING EDUCATED. ASSESSMENT COMPLETED. RESPIRATIONS EVEN AND UNLABORED ON RA, CLEAR LUNG SOUNDS.ABDOMEN SOFT ON PALPATION AND ACTIVE IN ALL 4 QUADRANTS. PEG TUBE NOTED TO LEFT QUAD. 0 RESIDUAL NOTED. TUBE FEEDING PROVIDED AT THIS TIME PER ORDER AND PT TOLERATED WELL. WEAK PEDAL PULSES.SKIN INTACT. TELE MONITORING IN PLACE. PUREWICK CATHETER DRAINING WITH EASE. #22G TO LFA FLUSHED AND PATENT,SITE APPEARS HEALTHY. NPO DIET REINFORCED AND ORAL CARE PROVIDED. PT DENIES ANY ADDITIONAL NEEDS AND IS ENCOURAGED TO CALL FOR ASSISTANCE IF NEEDED. FALL PRECAUTIONS IN PLACE WITH BED IN THE LOWEST POSITION AND CALL LIGHT IN REACH;FREQUENR ROUNDS MADE.
--- NOTE | 2024-05-07 12:00 | NUR ---
PT RESTING IN SEMI FOWLERS POSITION, RE-POSITIONED INTO HIGH FOWLERS.RESPIRATIONS EVEN AND UNLABORED ON RA . PT DENIES ANY CURRENT PAIN OR NEEDS.IV SITE TO LFA PATENT. PUREWICK CATHETER DRAINING WITH EASE. TUBE FEEDING PROVIDED PER ORDER- 0 RESIDUAL NOTED PRIOR TO FEEDING. NPO DIET REINFORCED. PT DENIES ANY ADDITIONAL NEEDS.CALL LIGHT IN REACH;FREQUENT ROUNDS MADE.
--- NOTE | 2024-05-07 15:40 | NUR ---
PT RESTING IN SEMI FOWLERS POSITION WATCHING TV. RESPIRATIONS EVEN AND UNLABORED ON RA.IV SITE TO LW PATENT. TELE MONITORING IN PLACE.PT DENIES ANY ADDITIONAL NEEDS AND IS ENCOURAGED TO CALL FOR ASSISTANCE IF NEEDED.CALL LIGHT IN REACH;FREQUENT ROUNDS MADE.
--- NOTE | 2024-05-07 19:24 | NUR ---
0703 bedside report given. pt lying in bed semi hicks good rise and fall of chest. call light within in reach. bed in lowest position and locked in position.
[2024-05-07] MEDS ORDERED: SODIUM CHLORIDE 0.9% 0 ML IV ONE (20:02)
--- NOTE | 2024-05-07 23:08 | NUR ---
2300 pt appears to bed sleeping . good rise and fall of chest. pt turned on right side. semi hicks. bed in lowest position and locked. call light within reach
[2024-05-08] VITALS: BP 123/49
[2024-05-08 00:14] VITALS: BP 123/49
[2024-05-08 04:00] VITALS: BP 123/49
--- NOTE | 2024-05-08 07:10 | NUR ---
REPORT RECEIVED FROM ANAYELIRN
[2024-05-08 07:23] LABS: BASO% 0.2 % (0-3); EOS% 0.4 % (0-8); HEMATOCRIT 29.6 % (39.0-50.0); HEMOGLOBIN 10.2 g/dl (14.0-18.0); IMMATURE GRANULOCYTES 3.2 % (0.0-5.0); MEAN CORPUSCULAR HGB 34.1 pG CALC (26.0-32.0); MEAN CORPUSCULAR HGB CONC 34.5 g/dL CAL (32.0-36.0); MONO% 7.1 % (2-13); NEUT# 10.8 thou/uL (1.82-7.42); NEUT% 77.1 % (42-76); RED BLOOD COUNT 2.99 mill/uL (4.70-6.10); RED CELL DISTRI WIDTH 14.1 % (11.5-15.5)
[2024-05-08 07:30] LABS: ALBUMIN 2.9 g/dL (3.2-5.0); BILIRUBIN, TOTAL 0.8 mg/dL (0.2-1.3); CREATININE 0.8 mg/dL (0.7-1.3); MAGNESIUM 2.2 mg/dL (1.6-2.3); POTASSIUM 2.7 mmol/l (3.5-5.1); TOTAL PROTEIN 5.2 g/dL (6.3-8.2)
[2024-05-08 07:52] VITALS: BP 136/46
[2024-05-08] MEDS ORDERED: POTASSIUM CHLORIDE 20MEQ 100 ML IV SCH (08:30)
[2024-05-08 08:40] VITALS: BP 147/54
--- NOTE | 2024-05-08 08:46 | NUR ---
AT BEDSIDE DISCUSSING POC
[2024-05-08] MEDS ORDERED: POTASSIUM CHLORIDE 20 MEQ/TAB PO SCH (09:00)
[2024-05-08 09:11] VITALS: BP 147/54
--- NOTE | 2024-05-08 09:30 | NUR ---
PT RESTING IN SEMI FOWLERS POSITION, A&O X3 WITH GARBLED SPEECH R/T CVA HX.PT DENIES ANY CURRENT PAIN OR DISCOMFORTS, PAIN SCALE AND REPORTING EDUCATED;ASSESSMENT COMPLETED. RESPIRATIONS EVEN AND UNLABORED ON RA, CLEAR LUNG SOUNDS.ABDOMEN SOFT ON PALPATION AND ACTIVE IN ALL 4 QUADRANTS. PEG TUBE NOT WITH 0 RESIDUAL AND TUBE FEEDING ADMINISTERED AT THIS TIME PER ORDER-PT TOLERATED WELL. PUREWICK CATHETER IN PLACE. WEAK PEDAL PULSES;#22G TO LFA FLUSHED AND PATENT, SITE APPEARS HEALTHY.PT DENIES ANY ADDITIONAL NEEDS AND IS ENCOURAGED TO CALL FOR ASSISTANCE IF NEEDED.CALL LIGHT IN REACH;FREQUENT ROUNDS MADE.
[2024-05-08] MEDS ORDERED: POTASSIUM CHLO20 MEQ PO (09:51)
[2024-05-08] MEDS ORDERED: DOXYCYCLINE100 MG VT (09:52)
--- NOTE | 2024-05-08 12:37 | NUR ---
ALL DICHARGE INSTRUCTIONS PROVIDED WITH PT AND SISTER IN LAW.PT INSTRUCTED TO F/ WITH PCP IN THE NEXT WEEK. INCREASE FLUID INTAKE FOR A GOAL OF 1500ML WITH TUBE FEEDINGS. TAKE DOXY AND POTASSIUM DIRECTED WHICH WAS SENT TO PHARMACY FOR BOILING HOUSE HAND. PT AND SISTER IN LAW VERBALIZE UNDERSTANDING. IV SITE REMOVED WITH CATHETER INTACT AND TELE MONITORING D/C. WC PROVIDED FOR D/C HOME.[employer] TO TRANSSPORT PT HOME.
--- NOTE | 2024-05-08 12:40 | NUR ---
Discharge instructions given. Patient verbalizes understanding of same. Discharged in stable condition via Wheelchair to Home with family. All belongings sent with pt. PT LEFT DEPARTMENT VIA WC ACCOMPANIED BY SISTER IN LAW AND SUZAN QUINTERO. ALL PERSONAL BELONGINGS LEFT WITH PT. SISTER IN [employer] TO TRANSPORT PT HOME.
== END 2024-05-08 12:37 | disposition home or self-care (01) | DRG 195 ==
LOC: ED 11:06 → ED-I 15:15 → ED 15:32 → MS2 15:33
PROVIDERS: Family Medicine; Nurse Practitioner Family; ADMIT Internal Medicine; ATTEND Internal Medicine
DX: J18.9 Pneumonia, unspecified organism (principal); E86.0 Dehydration; K20.90 Esophagitis, unspecified without bleeding; I69.991 Dysphagia following unspecified cerebrovascular disease; R13.10 Dysphagia, unspecified; F17.200 Nicotine dependence, unspecified, uncomplicated; Z93.1 Gastrostomy status; Z20.822 Contact with and (suspected) exposure to COVID-19; Z99.3 Dependence on wheelchair
CPT/HCPCS: J0692; J1650; J2470; J2543; J3370; J3480; Q9967

== ENCOUNTER 2024-05-13 07:43 | Emergency (ER) | payer MEDICARE ==
[2024-05-13] VITALS (20 sets, daily range): BP systolic 42–135; BP diastolic 24–66
[~2024-05-13] VITALS: Ht 160 cm; Wt 68.3 kg
[~2024-05-13 07:43] MED LIST changes: +DOXYCYCLINE100 MG VT; +POTASSIUM CHLO20 MEQ PO
[2024-05-13] MEDS ORDERED: Pantoprazole Sodium 40 MG VIAL (Protonix) IV ONE (07:55)
[2024-05-13] MEDS ORDERED: ONDANSETRON HCl 4 MG/2 ML SDV IV ONE (07:55)
[2024-05-13] MEDS ORDERED: SODIUM CHLORIDE 0.9% 1,000 ML IV ONE ×2 (08:00→09:35)
[2024-05-13] MEDS ORDERED: OCTREOTIDE ACETATE IV ONE (08:05)
[2024-05-13] MEDS ORDERED: cefTRIAXone SODIUM 2 GM in SODIUM CHLORIDE 0.9% 100 ML IV ONE (08:05)
[2024-05-13] MEDS ORDERED: SODIUM CHLORIDE 0.9% IV ONE (08:05)
[2024-05-13] MEDS ORDERED: OCTREOTIDE ACETATE 100 MCG/VIAL SDV IV ONE (08:05)
[2024-05-13 08:17] LABS: HEMATOCRIT 35.5 % (39.0-50.0); HEMOGLOBIN 11.7 g/dl (14.0-18.0); IMMATURE GRANULOCYTES 3.8 % (0.0-5.0); MEAN CELL VOLUME 101.1 fL CALC (80.0-100.0); MEAN CORPUSCULAR HGB 33.3 pG CALC (26.0-32.0); RED BLOOD COUNT 3.51 mill/uL (4.70-6.10); RED CELL DISTRI WIDTH 14.1 % (11.5-15.5)
[2024-05-13 08:21] LABS: PLATELET COUNT 333 thou/uL (130-400)
[2024-05-13 08:23] LABS: MANUAL DIFFERENTIAL YES
[2024-05-13] MEDS ORDERED: CEFEPIME HYDROCHLORIDE 2 GM in SODIUM CHLORIDE 0.9% 100 ML IV ONE (08:25)
[2024-05-13] MEDS ORDERED: VANCOMYCIN HCL 1 GM in SODIUM CHLORIDE 0.9% 500 ML IV ONE (08:25)
[2024-05-13 08:26] LABS: CREATININE 1.1 mg/dL (0.7-1.3)
[2024-05-13 08:28] LABS: ALBUMIN 4.2 g/dL (3.2-5.0); BILIRUBIN, TOTAL 1.4 mg/dL (0.2-1.3); POTASSIUM 3.9 mmol/l (3.5-5.1); TOTAL PROTEIN 7.7 g/dL (6.3-8.2)
[2024-05-13 08:53] LABS: ANISOCYTOSIS FEW
[2024-05-13 08:55] LABS: PLATELET ESTIMATE NORMAL
[2024-05-13] MEDS ORDERED: PIPERACILLIN Sodium-Tazobactam 3.375 GM in SODIUM CHLORIDE 0.9% 100 ML IV ONE (09:50)
[2024-05-13 10:44] LABS: URINE BILIRUBIN - DIPSTICK Negative (NEGATIVE); URINE BLOOD DIPSTICK Trace-intact (NEGATIVE); URINE GLUCOSE - DIPSTICK Negative (NEGATIVE); URINE KETONE Negative (NEGATIVE); URINE LEUK ESTERASE Negative (NEGATIVE); URINE NITRITE - DIPSTICK Negative (Negative); URINE PROTEIN - DIPSTICK 30 mg/dL (NEG-TRACE); URINE UROBILINOGEN - DIPSTICK 0.2 E.U./dL (0.2)
[2024-05-13 10:47] LABS: URINE COLOR Yellow
[2024-05-13 10:52] LABS: URINE RBC 0-2 RBC/hpf (0-5); URINE SQUAMOUS EPITHELIAL CELL RARE EPI/hpf (0-FEW); URINE WBC 0-2 WBC/hpf (0-5)
== END 2024-05-13 10:55 | disposition short-term general hospital (02) ==
LOC: ED 07:43 → ED-I 09:40 → ED 10:55
PROVIDERS: Family Medicine
DX: K92.0 Hematemesis (principal); J69.0 Pneumonitis due to inhalation of food and vomit; K22.2 Esophageal obstruction; Z93.1 Gastrostomy status; Z86.73 Personal history of transient ischemic attack (TIA), and cerebral infarction without residual deficits; Z20.822 Contact with and (suspected) exposure to COVID-19
CPT/HCPCS: J0692; J0696; J2354; J2405; J2470; J2543; J3370; Q9967

== ENCOUNTER 2024-05-27 09:43 | Emergency (ER) | payer MEDICARE ==
[~2024-05-27] VITALS: Ht 160 cm; Wt 50.0 kg
[2024-05-27] VITALS (24 sets, daily range): BP systolic 116–142; BP diastolic 54–96
[2024-05-27] MEDS ORDERED: SODIUM CHLORIDE 0.9% 1,000 ML IV ONE (10:35)
[2024-05-27] MEDS ORDERED: Pantoprazole Sodium 40 MG VIAL (Protonix) IV ONE (10:35)
[2024-05-27] MEDS ORDERED: ONDANSETRON HCl 4 MG/2 ML SDV IV ONE (10:35)
[2024-05-27 11:03] LABS: BASO% 0.2 % (0-3); EOS% 0.7 % (0-8); HEMATOCRIT 30.2 % (39.0-50.0); HEMOGLOBIN 9.6 g/dl (14.0-18.0); IMMATURE GRANULOCYTES 2.6 % (0.0-5.0); MEAN CELL VOLUME 94.7 fL CALC (80.0-100.0); MEAN CORPUSCULAR HGB 30.1 pG CALC (26.0-32.0); MEAN CORPUSCULAR HGB CONC 31.8 g/dL CAL (32.0-36.0); MONO% 4.3 % (2-13); NEUT# 13.1 thou/uL (1.82-7.42); NEUT% 84.2 % (42-76); RED BLOOD COUNT 3.19 mill/uL (4.70-6.10); RED CELL DISTRI WIDTH 14.6 % (11.5-15.5)
[2024-05-27 11:24] LABS: CREATININE 0.9 mg/dL (0.7-1.3); POTASSIUM 4.4 mmol/l (3.5-5.1); TOTAL PROTEIN 6.7 g/dL (6.3-8.2)
[2024-05-27 11:25] LABS: BILIRUBIN, TOTAL 0.7 mg/dL (0.2-1.3)
[2024-05-27] MEDS ORDERED: ISOVUE-300 (Iopamidol) 100 ML SDV IV ONE (12:55)
[2024-05-27 13:16] LABS: URINE BILIRUBIN - DIPSTICK Negative (NEGATIVE); URINE BLOOD DIPSTICK Negative (NEGATIVE); URINE GLUCOSE - DIPSTICK 100 mg/dL (NEGATIVE); URINE KETONE Negative (NEGATIVE); URINE LEUK ESTERASE Negative (NEGATIVE); URINE NITRITE - DIPSTICK Negative (Negative); URINE PH 6.5 (4.5-8.0); URINE PROTEIN - DIPSTICK Trace mg/dL (NEG-TRACE)
[2024-05-27 13:17] LABS: URINE COLOR Yellow
[2024-05-27] MEDS ORDERED: INSULIN REGULAR (HUMAN) 100 UNIT/ML INJ IV ONE (13:30)
[2024-05-27] MEDS ORDERED: ONDANSETRON4 MG/5 ML PEG (16:26)
== END 2024-05-27 16:40 | disposition home or self-care (01) ==
LOC: ED 09:43
PROVIDERS: Family Medicine
DX: R11.2 Nausea with vomiting, unspecified (principal); R13.10 Dysphagia, unspecified; Z93.1 Gastrostomy status; Z86.73 Personal history of transient ischemic attack (TIA), and cerebral infarction without residual deficits
CPT/HCPCS: J2405; J2470; Q9967

== ENCOUNTER 2024-05-31 22:35 | Emergency (ER) | payer MEDICARE ==
[~2024-05-31] VITALS: Ht 162.6 cm; Wt 70.5 kg
[~2024-05-31 22:35] MED LIST changes: +ONDANSETRON4 MG/5 ML PEG
[2024-05-31] MEDS ORDERED: KETOROLAC TROMETHAMINE 15 MG/ML SDV IV ONE (22:40)
[2024-05-31] MEDS ORDERED: SODIUM CHLORIDE 0.9% 1,000 ML IV ONE ×2 (22:45)
[2024-05-31] MEDS ORDERED: PIPERACILLIN Sodium-Tazobactam 3.375 GM in SODIUM CHLORIDE 0.9% 100 ML IV ONE (22:45)
[2024-05-31 22:46] VITALS: BP 111/47
[2024-05-31] MEDS ORDERED: IPRATROPIUM-Albuterol 0.5MG-2.5MG/3 ML NEB ONE (22:55)
[2024-05-31 23:01] VITALS: BP 97/79
[2024-05-31 23:08] LABS: BASO% 0.2 % (0-3); EOS% 0.2 % (0-8); HEMATOCRIT 33.3 % (39.0-50.0); HEMOGLOBIN 10.2 g/dl (14.0-18.0); IMMATURE GRANULOCYTES 1.7 % (0.0-5.0); LYMPH% 3.9 % (15-41); MEAN CELL VOLUME 92.2 fL CALC (80.0-100.0); MEAN CORPUSCULAR HGB 28.3 pG CALC (26.0-32.0); MEAN CORPUSCULAR HGB CONC 30.6 g/dL CAL (32.0-36.0); MONO% 2.6 % (2-13); NEUT# 15.81 thou/uL (1.82-7.42); NEUT% 91.4 % (42-76); RED BLOOD COUNT 3.61 mill/uL (4.70-6.10); RED CELL DISTRI WIDTH 15.2 % (11.5-15.5)
[2024-05-31 23:16] VITALS: BP 118/46
[2024-05-31 23:18] LABS: ALBUMIN 3.4 g/dL (3.2-5.0); CREATININE 0.9 mg/dL (0.7-1.3); POTASSIUM 3.7 mmol/l (3.5-5.1)
[2024-05-31 23:19] LABS: BILIRUBIN, TOTAL 1.1 mg/dL (0.2-1.3)
[2024-05-31 23:31] VITALS: BP 112/42
[2024-05-31 23:46] VITALS: BP 112/53
[2024-06-01] VITALS (16 sets, daily range): BP systolic 78–121; BP diastolic 42–62
[2024-06-01] MEDS ORDERED: SODIUM CHLORIDE 0.9% 1,000 ML IV ONE ×2 (00:10→02:36)
[2024-06-01] MEDS ORDERED: NOREPINEPHRINE BITARTRATE 4 MG in DEXTROSE 5% 250 ML IV ONE (00:10)
[2024-06-01] MEDS ORDERED: SODIUM CHLORIDE 0.9% 250 ML IV PRN (00:10)
[2024-06-01] MEDS ORDERED: CLINDAMYCIN PHOSPHATE 50 ML IV ONE (01:10)
[2024-06-01 01:22] LABS: URINE BILIRUBIN - DIPSTICK Negative (NEGATIVE); URINE BLOOD DIPSTICK Large (NEGATIVE); URINE COLOR Yellow; URINE GLUCOSE - DIPSTICK Negative (NEGATIVE); URINE KETONE Negative (NEGATIVE); URINE LEUK ESTERASE Negative (NEGATIVE); URINE NITRITE - DIPSTICK Negative (Negative); URINE PROTEIN - DIPSTICK 30 mg/dL (NEG-TRACE)
[2024-06-01 01:38] LABS: URINE BACTERIA MODERATE hpf; URINE HYALINE CAST RARE lpf (NONE-RARE); URINE RBC >100 RBC/hpf (0-5)
== END 2024-06-01 03:46 | disposition short-term general hospital (02) ==
LOC: ED 22:35 → ED-I 06-01 01:55 → ED 06-01 03:46
PROVIDERS: Family Medicine
DX: J69.0 Pneumonitis due to inhalation of food and vomit (principal); N39.0 Urinary tract infection, site not specified; R13.10 Dysphagia, unspecified; Z93.1 Gastrostomy status; Z95.828 Presence of other vascular implants and grafts; Z86.73 Personal history of transient ischemic attack (TIA), and cerebral infarction without residual deficits; Z20.822 Contact with and (suspected) exposure to COVID-19; Z45.2 Encounter for adjustment and management of vascular access device; K20.80 Other esophagitis without bleeding; B00.89 Other herpesviral infection
CPT/HCPCS: J0133; J0736; J1885; J2543; Q9967